=== PATIENT | female | born 1965 | race Caucasian/White ===

== ENCOUNTER 2016-07-31 08:40 | Day surgery (SDC) | payer OTHER ==
[2016-07-28 15:38] VITALS: BMI 21.3
[~2016-07-31] VITALS: Ht 165.1 cm; Wt 58.2 kg
[2016-07-31] VITALS (9 sets, daily range): BP systolic 104–121; BP diastolic 62–74; PULSE 70–94; RESP 14–20; Ht 165.1 cm; Wt 58.2 kg
[~2016-07-31 08:40] MED LIST: NAPR-688 PO
[2016-07-31] MEDS ORDERED: CEFAZOLIN 1 GM/50 ML (PMX) 50 ML IVPB SCH (11:00)
[2016-07-31] MEDS ORDERED: SOD CHLORIDE 0.9% 1,000 ML IV SCH (11:00)
[2016-07-31] MEDS ORDERED: NAPR-260 PO (11:24)
[2016-07-31] MEDS ORDERED: LIDOCAINE 2% (SDV) 5 ML INJ ONE (13:58)
[2016-07-31] MEDS ORDERED: PROPOFOL 100 ML ONE (13:58)
[2016-07-31] MEDS ORDERED: MIDAZOLAM 1 MG/ML 2 ML INJ ONE (13:59)
[2016-07-31] MEDS ORDERED: ACETAMINOPHEN 1000MG/100ML IV 100 ML ONE (14:02)
[2016-07-31] MEDS ORDERED: CEFAZOLIN 1 GM INJ ONE (15:01)
[2016-07-31] MEDS ORDERED: ONDANSETRON 4 MG INJ IV PRN (15:30)
[2016-07-31] MEDS ORDERED: DIPHENHYDRAMINE 50 MG INJ IV PRN (15:30)
[2016-07-31] MEDS ORDERED: MEPERIDINE 25 MG INJ IV PRN (15:30)
[2016-07-31] MEDS ORDERED: LABETALOL HCL 20MG INJ IV PRN (15:30)
[2016-07-31] MEDS ORDERED: hydrALAzine 20 MG INJ IV PRN (15:30)
[2016-07-31] MEDS ORDERED: FENTAnyl 50 MCG/ML VIAL IV PRN ×3 (15:30)
[2016-07-31] MEDS ORDERED: EPHEDrine SULFATE 50 MG/5 ML SYG IV PRN (15:30)
--- NOTE | 2016-07-31 18:42 | OPR ---
DATE OF OPERATION: 07/31/2016 PREOPERATIVE DIAGNOSIS: Ductal carcinoma in situ, left breast, 2 separate lesions. POSTOPERATIVE DIAGNOSIS: Ductal carcinoma in situ, left breast, 2 separate lesions. OPERATION PERFORMED: Needle-directed left partial mastectomy. ANESTHESIA: General. ANESTHESIOLOGIST: Dr. Salvador SURGEON: Garo Cox MD CORRECTIONAL MEDICINE PHYSICIAN: Titus Fernandez MD INDICATIONS FOR PROCEDURE: The patient is a 50-year-old female who previously had a breast biopsy b y another surgeon for a fibroadenoma. There was an incidental finding of ductal carcinoma in situ. The patient was put in the high risk surveillance program. Recent mammogram revealed a separate ar ea that also contained of DCIS. Both of these areas were within relatively close proximity. The pa tient was counseled as to the need for definitive surgical excision of both areas of known DCIS. iKrstie greer consented and was scheduled for surgery. DESCRIPTION OF PROCEDURE: The patient was brought to [facility] o n the day of surgery. She underwent localization of both sites performed by attending radiologist, Dr. Helena Corbin. Subsequently, she was brought to the operating theater where she was placed un mulugeta general anesthesia. The left breast was prepped and draped in usual sterile fashion. The local ization wires were in the upper outer quadrant of the breast. A curvilinear incision was made in be tween the 2 wires. Subcutaneous tissue was dissected with cautery. Skin edges were then elevated w ith skin hooks and wide circumferential dissection of the tissue associated with both wires took el ce in an en bloc fashion. Specimen was elevated, transected, oriented, removed, and sent for radiog raphic confirmation of capture. Capture was confirmed. Specimen was then sent for permanent pathol ogic analysis. The wound was irrigated. Minimal bleeding was controlled with cautery. The skin wa s then reapproximated with 4-0 Vicryl suture in subcuticular fashion, and benzoin and Steri-Strips w ere applied. The patient tolerated procedure well. Estimated blood loss was 20 mL. There were no complications and the patient was transported in stable condition to the recovery room. Dictated By: GARO COX MD TL/NTS Conf#: [id number] DID#: [id number]
== END 2016-07-31 17:05 | disposition home or self-care (01) ==
LOC: SDS 08:40
PROVIDERS: ATTEND Surgery Surgical Oncology
DX: D05.12 Intraductal carcinoma in situ of left breast (principal)
CPT/HCPCS: 19301; 88307; J0131; J0690; J2250; J2405; J3010; Z7512; Z7610